=== PATIENT | male | born 1985 | race Caucasian/White ===

== ENCOUNTER 2017-11-04 16:49 | Emergency (ER) | payer MEDICAID ==
[2017-11-04] MEDS ORDERED: KETOROLAC 60 MG/2 ML VIAL IM STA (17:30)
--- NOTE | 2017-11-04 17:32 | Emergency Department Record ---
History of Present Illness - General Chief complaint: Pain Stated complaint: PAIN RT SHOULDER BLADE Time Seen by Provider: 11/04/17 17:10 Source: Patient Mode of Arrival: Ambulatory Limitations: No limitations - History of Present Illness Initial comments: 32 yo male presents to ED for evaluation of right shoulder/scapular pain after hanging drywall at work (just recently went back to work) 5 days ago. Patient reports that he was doing a lot of overhead lifting, pain started the following day. Patient denies fevers, chills, cough, or recent illness. Patient denies history of DVT/PE, and denies health problems at his baseline. Patient has been taking Motrin, Ultram, hot massage, all without significant improvement in his pain symptoms. MD Complaint: Other Onset/Timin -: Days(s) Location: Right, Shoulder History of Same: No Severity scale (1-10): 10 Quality: Sharp Consistency: Intermittent Improves with: Nothing Worsens with: Nothing - Related Data Previous Rx's Medication Instructions Recorded Diazepam [Valium] 5 mg PO Q8H PRN #10 tab 11/04/17 Allergies Allergy/AdvReac Type Severity Reaction Status Date / Time No Known Allergies Allergy PT UNSURE Unverified 11/04/17 17:03 OF REACTION Travel Screening - Travel/Exposure Within Last 30 Days Have you traveled within the last 30 days?: No - Travel/Exposure Within Last Year Have you traveled outside the [place] in the last year?: No - Additonal Travel Details Have you been exposed to anyone with a communicable illness?: No - Travel Symptoms Symptom Screening: None Review of Systems Constitutional: Denies: Chills, Fever, Malaise, Night sweats Eyes: Denies: Eye discharge, Eye pain ENT: Denies: Congestion, Ear pain, Epistaxis Respiratory: Denies: Cough, Dyspnea Cardiovascular: Denies: Chest pain, Dyspnea on exertion Endocrine: Denies: Fatigue, Heat or cold intolerance Gastrointestinal: Denies: Abdominal pain, Nausea, Vomiting Genitourinary: Denies: Incontinence, Retention Musculoskeletal: Reports: Arthralgia. Denies: Back pain, Gout, Joint swelling Skin: Denies: Bruising, Change in color Neurological: Denies: Abnormal gait, Confusion, Headache, Seizure Psychiatric: Denies: Anxiety Hematological/Lymphatic: Denies: Anemia, Blood Clots Past Medical History - SOCIAL HISTORY Smoking Status: Former smoker Alcohol Use: None Drug Use: Occasional Drug Use Detail:: Marijuana - RESPIRATORY Hx Respiratory Disorders: Yes Hx Asthma: Yes - CARDIOVASCULAR Hx Cardio Disorders: No - NEURO Hx Neuro Disorders: No - GI Hx GI Disorders: No - Hx Genitourinary Disorders: No - ENDOCRINE Hx Endocrine Disorders: No - MUSCULOSKELETAL Hx Musculoskeletal Disorders: No - PSYCH Hx Psych Problems: Yes Hx Anxiety: Yes Hx Depression: Yes Comment:: ADD - HEMATOLOGY/ONCOLOGY Hx Hematology/Oncology Disorders: No Family Medical History Any Significant Family History?: Yes Hx Anxiety: Mother, Brother/Sister Hx Diabetes: Mother, Brother/Sister Physical Exam - General General Appearance: Alert, Oriented x3, Cooperative, Mild distress Limitations: No limitations - Head Head exam: Atraumatic, Normocephalic, Normal inspection Head exam detail: negative: Abrasion, Contusion, Perez's sign, General tenderness, Hematoma, Laceration - Eye Eye exam: Normal appearance. negative: Conjunctival injection, Periorbital swelling, Periorbital tenderness, Scleral icterus - ENT Ear exam: negative: Auricular hematoma, Auricular trauma Nasal Exam: negative: Active bleeding, Discharge, Dried blood, Foreign body Mouth exam: negative: Drooling, Laceration, Muffled voice, Tongue elevation - Neck Neck exam: Normal inspection. negative: Meningismus, Tenderness - Respiratory Respiratory exam: Normal lung sounds bilaterally. negative: Rales, Respiratory distress, Rhonchi, Stridor - Cardiovascular Cardiovascular Exam: Regular rate, Normal rhythm, Normal heart sounds - GI/Abdominal GI/Abdominal exam: Soft. negative: Rebound, Rigid, Tenderness - Rectal Rectal exam: Deferred - exam: Deferred - Extremities Extremities exam: Normal inspection. negative: Pedal edema, Tenderness - Back Back exam: Reports: Paraspinal tenderness (TTP over the medial scapular region right, FROM of the right UE/shoulder on examination.). Denies: CVA tenderness ( R), CVA tenderness (L) - Neurological Neurological exam: Alert, Normal gait, Oriented X3 - Psychiatric Psychiatric exam: Normal affect, Normal mood - Skin Skin exam: Normal color. negative: Abrasion Type of lesion: negative: abrasion Course Vital Signs 11/04/17 11/04/17 17:05 17:09 Temperature 97.8 F 97.8 F Pulse Rate [ 90 Pulse Ox Probe] Respiratory 17 17 Rate Blood Pressure 133/76 [Right Arm] - Reevaluation(s) Reevaluation #1: 11/04/17 17:56 MDM: Patient was seen and examined, is PERC negative on examination. Symptoms are reproducible with palpation of the medial scapular muscles, and the patient denies abdominal kike/nausea/vomiting-symptoms are unlikely to be the result of cholecystitis. Will reassess following radiograph interpretation. Disposition Disposition: Discharge Clinical Impression: Muscle strain of right scapular region Qualifiers: Encounter type: initial encounter Qualified Code(s): S46.911A - Strain of unspecified muscle, fascia and tendon at shoulder and upper arm level, right arm , initial encounter Disposition: Home, Self-Care Condition: (2) Stable Instructions: Musculoskeletal Pain (ED) Additional Instructions: Return to ED if your symptoms worsen or if you have any concerns. Follow-up with a family doctor in 3-5 days as directed. Valium as directed. Prescriptions: Diazepam [Valium] 5 mg PO Q8H PRN #10 tab PRN Reason: Pain - Moderate (5-7) Forms: Patient Portal Access Time of Disposition: 17:59 Quality - Quality Measures Quality Measures: N/A - Blood Pressure Screening Does Patient Have Any of the Following: No Blood Pressure Classification: Pre-Hypertensive BP Reading Systolic Measurement: 133 Diastolic Measurement: 76 Screening for High Blood Pressure: < Pre-Hypertensive BP, F/U Documented > [ G8950] Pre-Hypertensive Follow-up Interventions: Referral to alternative/primary care provider.
[2017-11-04] MEDS ORDERED: DIAZEPAM 5 MG TABLET PO ONE (18:08)
--- NOTE | 2017-11-06 04:01 | RADIOLOGY REPORT ---
DATE: 11/04/2017. EXAM: TWO VIEWS OF THE RIGHT SCAPULA. HISTORY: The patient has pain in the right scapula. TECHNIQUE: Two views of the right scapula are provided without comparison studies. FINDINGS: There is no radiographic evidence of a fracture or dislocation of the right scapula. No significant soft tissue abnormality is visualized. The right acromioclavicular joint is unremarkable. The right glenohumeral articulation is unremarkable. The visualized right upper hemithorax is unremarkable. IMPRESSION: NO RADIOGRAPHIC EVIDENCE OF AN ACUTE PROCESS INVOLVING THE RIGHT SCAPULA. JOB NUMBER: [id number] MTDD
== END 2017-11-04 18:24 | disposition home or self-care (01) ==
LOC: ER 16:49
DX: S46.911A Strain of unspecified muscle, fascia and tendon at shoulder and upper arm level, right arm, initial encounter (principal); X50.0XXA Overexertion from strenuous movement or load, initial encounter; Y93.H3 Activity, building and construction; Y99.0 Civilian activity done for income or pay
CPT/HCPCS: 99283; 96372; 99284; 73010; J3490; J1885

== ENCOUNTER 2017-12-05 16:39 | Emergency (ER) | payer MEDICAID ==
--- NOTE | 2017-12-05 18:02 | Emergency Department Record ---
History of Present Illness - General Chief complaint: Extremity Problem Stated complaint: RT HAND/WRIST SWELLING/PAIN Time Seen by Provider: 12/05/17 16:58 Source: Patient Mode of Arrival: Ambulatory Limitations: No limitations - History of Present Illness Initial comments: pt injured r hand wrist when he slipped while hanging drywall Complaint: Extremity pain, Extremity swelling Onset/Timin -: Week(s) Location: Right, Hand Radiation: None Severity scale (1-10): 6 Quality: Aching Consistency: Getting worse Improves with: Nothing Worsens with: Exertion Associated Symptoms: Denies other symptoms - Related Data Previous Rx's Medication Instructions Recorded Hydrocodone/Acetaminophen [[place] 1 each PO Q6HR #7 tablet 12/05/17 5-325 Tablet] Allergies Allergy/AdvReac Type Severity Reaction Status Date / Time No Known Allergies Allergy PT UNSURE Verified 12/05/17 16:52 OF REACTION Travel Screening - Travel/Exposure Within Last 30 Days Have you traveled within the last 30 days?: No - Travel/Exposure Within Last Year Have you traveled outside the [place] in the last year?: No - Additonal Travel Details Have you been exposed to anyone with a communicable illness?: No - Travel Symptoms Symptom Screening: None Review of Systems Reviewed: No additional complaints except as noted below Constitutional: Reports: As per HPI. Denies: Chills, Fever, Malaise, Night sweats, Weakness, Weight change Eyes: Reports: As per HPI. Denies: Eye discharge, Eye pain, Photophobia, Vision change ENT: Reports: As per HPI. Denies: Congestion, Dental pain, Ear pain, Epistaxis , Hearing loss, Throat pain Respiratory: Reports: As per HPI. Denies: Cough, Dyspnea, Hemoptysis, Stridor, Wheezes Cardiovascular: Reports: As per HPI. Denies: Arrhythmia, Chest pain, Dyspnea on exertion, Edema, Murmurs, Orthopnea, Palpitations, Paroxysmal nocturnal dyspnea, Rheumatic Fever, Syncope Endocrine: Reports: As per HPI. Denies: Fatigue, Heat or cold intolerance, Polydipsia, Polyuria Gastrointestinal: Reports: As per HPI. Denies: Abdominal pain, Constipation, Diarrhea, Hematemesis, Hematochezia, Melena, Nausea, Vomiting Genitourinary: Reports: As per HPI. Denies: Dysuria, Frequency, Hematuria, Incontinence, Retention, Testicular pain, Testicular mass, Urgency Musculoskeletal: Reports: As per HPI. Denies: Arthralgia, Back pain, Gout, Joint swelling, Myalgia, Neck pain Skin: Reports: As per HPI. Denies: Bruising, Change in color, Change in hair/ nails, Lesions, Pruritus, Rash Neurological: Reports: As per HPI. Denies: Abnormal gait, Confusion, Headache, Numbness, Paresthesias, Seizure, Tingling, Tremors, Vertigo, Weakness Psychiatric: Reports: As per HPI. Denies: Anxiety, Auditory hallucinations, Depression, Homicidal thoughts, Suicidal thoughts, Visual hallucinations Hematological/Lymphatic: Reports: As per HPI. Denies: Anemia, Blood Clots, Easy bleeding, Easy bruising, Swollen glands Past Medical History - SOCIAL HISTORY Smoking Status: Current every day smoker Alcohol Use: None Drug Use: Occasional Drug Use Detail:: Marijuana - RESPIRATORY Hx Respiratory Disorders: Yes Hx Asthma: Yes - CARDIOVASCULAR Hx Cardio Disorders: No - NEURO Hx Neuro Disorders: No - GI Hx GI Disorders: No - Hx Genitourinary Disorders: No - ENDOCRINE Hx Endocrine Disorders: No - MUSCULOSKELETAL Hx Musculoskeletal Disorders: No - PSYCH Hx Psych Problems: Yes Hx Anxiety: Yes Hx Depression: Yes Comment:: ADD - HEMATOLOGY/ONCOLOGY Hx Hematology/Oncology Disorders: No Family Medical History Any Significant Family History?: Yes Hx Anxiety: Mother, Brother/Sister Hx Diabetes: Mother, Brother/Sister Physical Exam - General General Appearance: Alert, Oriented x3, Cooperative, Mild distress - Head Head exam: Normal inspection - Eye Eye exam: Normal appearance, PERRL, EOMI Pupils: Normal accommodation - ENT ENT exam: Normal exam, Mucous membranes moist, Normal external ear exam, Normal orophraynx Ear exam: Normal external inspection. negative: External canal tenderness Nasal Exam: Normal inspection. negative: Discharge, Sinus tenderness Mouth exam: Normal external inspection, Tongue normal Teeth exam: Normal inspection. negative: Dental caries Throat exam: Normal inspection. negative: Tonsillar erythema, Tonsillar exudate - Neck Neck exam: Normal inspection, Full ROM. negative: Tenderness - Respiratory Respiratory exam: Normal lung sounds bilaterally. negative: Respiratory distress - Cardiovascular Cardiovascular Exam: Regular rate, Normal rhythm, Normal heart sounds - GI/Abdominal GI/Abdominal exam: Soft, Normal bowel sounds. negative: Tenderness - Rectal Rectal exam: Deferred - exam: Deferred - Extremities Extremities exam: Normal inspection, Full ROM, Normal capillary refill, Tenderness Image of Hand: 1 - tender w swelling - Back Back exam: Reports: Normal inspection, Full ROM. Denies: Muscle spasm, Rash noted, Tenderness - Neurological Neurological exam: Alert, CN II-XII intact, Normal gait, Oriented X3 - Psychiatric Psychiatric exam: Normal affect, Normal mood - Skin Skin exam: Dry, Intact, Normal color, Warm Course Vital Signs 12/05/17 16:53 Temperature 97.5 F L Pulse Rate 114 H Respiratory 20 Rate Blood Pressure 123/74 Pulse Ox 100 Disposition Disposition: Discharge Clinical Impression: Fx hamate bone-closed Qualifiers: Encounter type: initial encounter Hamate bone location: body Fracture alignment : displaced Laterality: right Qualified Code(s): S62.141A - Displaced fracture of body of hamate [unciform] bone, right wrist, initial encounter for closed fracture Disposition: Home, Self-Care Condition: (1) Good Instructions: Wrist Fracture in Adults (ED) Additional Instructions: ice and elevate. follow up with dr avalos. call office. return sooner if worse Prescriptions: Hydrocodone/Acetaminophen [[place] 5-325 Tablet] 1 each PO Q6HR #7 tablet Referrals: FORREST AVALOS [DOCTOR OF OSTEOPATH] - Forms: Patient Portal Access, Return to Work/School Quality - Quality Measures Quality Measures: N/A - Blood Pressure Screening Does Patient Have Any of the Following: No Blood Pressure Classification: Pre-Hypertensive BP Reading Systolic Measurement: 123 Diastolic Measurement: 74 Screening for High Blood Pressure: < Pre-Hypertensive BP, F/U Documented > [ G8950] Pre-Hypertensive Follow-up Interventions: Follow-up with rescreen every year.
--- NOTE | 2017-12-06 15:12 | RADIOLOGY REPORT ---
EXAM: RIGHT WRIST HISTORY: RIGHT WRIST INJURY ONE WEEK AGO. PAIN WITH MOTION. TECHNIQUE: Four views of the right wrist were obtained. Comparison: None. Encounter: Initial. FINDINGS: On the oblique view of the wrist there is a tiny calcific density off the ulnar aspect of the hamate bone suggesting a small avulsion fracture. The remaining osseous and articular structures are normal. There is no other fracture or dislocation. IMPRESSION: SUSPECTED TINY AVULSION FRACTURE OFF THE ULNAR ASPECT OF THE HAMATE BONE SEEN ON THE OBLIQUE VIEW OF THE WRIST. JOB NUMBER: [id number] MTDD
== END 2017-12-05 18:21 | disposition home or self-care (01) ==
LOC: ER 16:39
DX: S62.141A Displaced fracture of body of hamate [unciform] bone, right wrist, initial encounter for closed fracture (principal); W01.0XXA Fall on same level from slipping, tripping and stumbling without subsequent striking against object, initial encounter; Y93.H3 Activity, building and construction
CPT/HCPCS: 99283